=== PATIENT | male | born 1945 | race Caucasian/White ===

== ENCOUNTER 2020-12-30 13:11 | Emergency (ER) | payer MEDICARE ==
[~2020-12-30] VITALS: Ht 177.8 cm; Wt 95.3 kg
[2020-12-30] MEDS ORDERED: UNKNOWN BP MED PO (13:25)
[2020-12-30 13:56] LABS: ABSOLUTE BASOPHILS 0.1 thou/uL (0.0-0.2); ABSOLUTE EOSINOPHILS 0.2 thou/uL (0.0-0.7); ABSOLUTE LYMPHOCYTES 2.5 thou/uL (0.8-5.3); ABSOLUTE MONOCYTES 0.6 thou/uL (0.0-1.2); ABSOLUTE NEUTROPHILS 8.2 thou/uL (1.6-8.1); BASOPHILS 0.6 %; EOSINOPHILS 2.1 %; HEMATOCRIT 41.3 % (42.0-52.0); HEMOGLOBIN 13.9 gm/dL (14.0-18.0); LYMPHOCYTES 21.5 %; MCH 30.8 pg (26.0-34.0); MCHC 33.6 g/dL (28.0-37.0); MCV 91.6 fL (80.0-100.0); MONOCYTES 5.2 %; NUCLEATED RBCS 0 /100WBC; PLATELET COUNT* 275 thou/uL (150-400); POLYS 70.6 %; RBC 4.51 mil/uL (4.50-6.00); RDW-CV 13.6 % (10.5-14.5); WBC 11.6 thou/uL (4.0-11.0)
[2020-12-30 14:07] LABS: CALCIUM 9.3 mg/dL (8.5-10.1); CREATININE 1.5 mg/dL (0.6-1.3); POTASSIUM 3.8 mmol/L (3.5-5.1)
[2020-12-30 14:12] LABS: ALBUMIN 4.3 g/dL (3.4-5.0)
[2020-12-30 15:24] LABS: URINE BILIRUBIN NEGATIVE (Negative); URINE BLOOD NEGATIVE (Negative); URINE CLARITY CLEAR; URINE COLOR YELLOW; URINE GLUCOSE-RANDOM NEGATIVE (Negative); URINE KETONES 1+ (Negative); URINE LEUKOCYTES-REFLEX NEGATIVE (Negative); URINE NITRITE-REFLEX NEGATIVE (Negative); URINE PROTEIN TRACE (Negative); URINE SPECIFIC GRAVITY 1.025 (1.005-1.030); URINE UROBILINOGEN 0.2 E.U./dl (0.2-1.0)
--- NOTE | 2020-12-30 15:36 | EKG ---
[place] [address] ELECTROCARDIOGRAM REPORT Name: TAL RAMIREZ Room: [facility]#: [id number] Admission: 12/30/20 Attend Phys: Discharge: Date of : 41 Date of Service: 12/30/20 1333 Report #: [id number] THIS REPORT FOR: //name// [facility] ED Test Date: 2020-12-30 Test Time: 13:33:04 Pat Name: TAL RAMIREZ Department: Room: Gender: Park Maintenance Technician: : 1945 Requested By: Sincere Roe Order Number: [id number] MD: Kasi Zazueta Measurements Intervals [place] Rate: 82 P: 65 [place]: 168 QRS: 45 QRSD: 79 T: 35 QT: 350 QTc: 409 Interpretive Statements Sinus rhythm Probable left atrial enlargement Baseline wander in lead(s) V4 No previous ECG available for comparison Electronically Signed On 12-30-2020 15:35:58 CDT by Kasi Zazueta [email or web address] <ELECTRONICALLY SIGNED> By: Kasi Zazueta MD, [facility] 12/30/20 1535 32 32 Kasi Zazueta MD, [facility] /EPI
[2020-12-30 15:49] VITALS: BP 129/73
== END 2020-12-30 15:51 | disposition home or self-care (01) ==
LOC: M.ERS 13:11
PROVIDERS: Nurse Practitioner Psychiatric/Mental Health
DX: T67.1XXA Heat syncope, initial encounter (principal); R42 Dizziness and giddiness; R41.82 Altered mental status, unspecified; I10 Essential (primary) hypertension; Z88.0 Allergy status to penicillin; Z79.899 Other long term (current) drug therapy; Y92.89 Other specified places as the place of occurrence of the external cause

== ENCOUNTER 2021-06-19 11:15 | Emergency (ER) | payer MEDICARE ==
[~2021-06-19] VITALS: Ht 177.8 cm; Wt 93.0 kg
[~2021-06-19 11:15] MED LIST: UNKNOWN BP MED PO
[2021-06-19] MEDS ORDERED: ACYCLOVIR 800800 MG PO (11:25)
[2021-06-19] MEDS ORDERED: HYDROCODON-ACE1 EAC7 PO (11:25)
[2021-06-19 11:50] LABS: ABSOLUTE BASOPHILS 0.1 thou/uL (0.0-0.2); ABSOLUTE LYMPHOCYTES 0.8 thou/uL (0.8-5.3); ABSOLUTE MONOCYTES 0.5 thou/uL (0.0-1.2); ABSOLUTE NEUTROPHILS 7.7 thou/uL (1.6-8.1); BASOPHILS 0.7 %; EOSINOPHILS 0.4 %; HEMATOCRIT 42.7 % (42.0-52.0); HEMOGLOBIN 14.6 gm/dL (14.0-18.0); LYMPHOCYTES 8.8 %; MCH 30.6 pg (26.0-34.0); MCHC 34.1 g/dL (28.0-37.0); MCV 89.6 fL (80.0-100.0); MONOCYTES 5.9 %; NUCLEATED RBCS 0 /100WBC; PLATELET COUNT* 188 thou/uL (150-400); POLYS 84.2 %; RBC 4.77 mil/uL (4.50-6.00); RDW-CV 13.2 % (10.5-14.5); WBC 9.2 thou/uL (4.0-11.0)
[2021-06-19 12:08] LABS: CALCIUM 8.5 mg/dL (8.5-10.1); CREATININE 1.2 mg/dL (0.6-1.3); POTASSIUM 4.6 mmol/L (3.5-5.1)
[2021-06-19 12:13] LABS: ALBUMIN 3.3 g/dL (3.4-5.0); TOTAL BILIRUBIN 1.1 mg/dL (<0.1-1.0); TOTAL PROTEIN 7.1 g/dL (6.4-8.2)
[2021-06-19 12:29] VITALS: BP 124/61
--- NOTE | 2021-06-19 12:33 | EKG ---
[place] [address] ELECTROCARDIOGRAM REPORT Name: TAL RAMIREZ Room: [facility]#: [id number] Admission: 06/19/21 Attend Phys: Discharge: 06/19/21 Date of : 41 Date of Service: 06/19/21 1142 Report #: [id number] THIS REPORT FOR: //name// [facility] ED Test Date: 2021-06-19 Test Time: 11:42:41 Pat Name: TAL RAMIREZ Department: Room: Gender: Manager Tax: : 1945 Requested By: Obey Forbes Order Number: [id number] MD: Paolo Tuttle Measurements Intervals [place] Rate: 92 P: 81 [place]: 151 QRS: 70 QRSD: 80 T: 72 QT: 337 QTc: 417 Interpretive Statements Sinus rhythm Atrial premature complex Minimal ST depression, inferior leads Baseline wander in lead(s) I,II,aVR Compared to ECG 12/30/2020 13:33:04 Atrial premature complex(es) now present ST (T wave) deviation now present Electronically Signed On 06-19-2021 12:33:40 TELECOMMUNICATIONS PROFESSIONAL by Paolo Tuttle [email or web address] <ELECTRONICALLY SIGNED> By: Paolo Tuttle MD, FACC 06/19/21 1233 1142 1142 Paolo Tuttle MD, FACC /EPI
== END 2021-06-19 12:31 | disposition home or self-care (01) ==
LOC: M.ERS 11:15
PROVIDERS: Family Medicine
DX: B02.9 Zoster without complications (principal); R55 Syncope and collapse; I10 Essential (primary) hypertension; Z79.899 Other long term (current) drug therapy; Z88.0 Allergy status to penicillin